=== PATIENT | male | born 1980 | race African-American/Black ===

== ENCOUNTER 2017-04-01 13:41 | Inpatient (IN) | payer MEDICAID ==
[~2017-04-01] VITALS: Ht 180.3 cm; Wt 69.9 kg
[2017-04-01] MEDS ORDERED: ONDANSETRON 4MG ODT PO STA (18:21)
[2017-04-01] MEDS ORDERED: VISCOUS LIDOCAINE 2% 15 ML UDC PO STA (18:21)
[2017-04-01] MEDS ORDERED: MAGNESIUM/ALUMINUM HYDROXIDE/SIMETHICONE 30ML UDC PO STA (18:21)
[2017-04-01] MEDS ORDERED: DICYCLOMINE 10 MG/5 ML ORAL SYR PO STA (18:21)
[2017-04-01] MEDS ORDERED: ACETAMINOPHEN WITH CODEINE 300/30MG TABLET PO STA (18:21)
[2017-04-01 18:53] LABS: CLARITY URINE CLEAR (CLEAR); COLOR URINE DARK YELLOW (YELLOW); GLUCOSE URINE NEGATIVE (NEGATIVE); KETONES URINE 2+ (NEGATIVE); LEUKOCYTE ESTERASE URINE NEGATIVE (NEGATIVE); NITRITE URINE NEGATIVE (NEGATIVE); OCCULT BLOOD URINE TRACE (NEGATIVE); PROTEIN URINE 2+ (NEGATIVE); SPECIFIC GRAVITY URINE 1.031 (1.005-1.030)
[2017-04-01 18:56] LABS: BASOPHILS % 0.1 % (0.0-2.0); EOSINOPHILS % 0.5 % (0.0-5.0); HEMATOCRIT. 45.8 % (42.0-52.0); HEMOGLOBIN. 15.5 g/dL (14.0-18.0); LYMPHOCYTES % 9.1 % (20.0-50.0); MEAN CORPUSCULAR HEMOGLOBIN 33.7 pg (28.0-32.0); MEAN CORPUSCULAR VOLUME 99.5 fL (80.0-94.0); MEAN PLATELET VOLUME 7.8 fl (7.4-10.4); MONOCYTES % 5.8 % (2.0-8.0); NEUTROPHILS % 84.5 % (40.0-76.0); PLATELET 213 x1000/uL (130-400); RED BLOOD CELL COUNT 4.61 mill/uL (4.7-6.1); RED CELL DISTRIBUTION WIDTH 14.8 % (11.6-14.6)
[2017-04-01 19:00] LABS: INR 0.9; PROTHROMBIN TIME 9.9 sec (9.4-11.6)
[2017-04-01 19:05] LABS: CARBON DIOXIDE 28 mEq/L (21-32); CHLORIDE 89 mEq/L (98-107)
[2017-04-01] MEDS ORDERED: SODIUM CHLORIDE 0.9% 1,000 ML IV ONE ×2 (19:17→19:45)
[2017-04-01 22:10] VITALS: BP 149/101
[2017-04-01] MEDS ORDERED: ONDANSETRON HCL 4MG/2ML VIAL IV PRN (23:00)
[2017-04-01] MEDS ORDERED: ACETAMINOPHEN 325MG TABLET PO PRN (23:00)
[2017-04-01] MEDS ORDERED: DIPHENHYDRAMINE 50MG/ML VIAL IV PRN (23:00)
[2017-04-01] MEDS ORDERED: SODIUM CHLORIDE 0.9% 1,000 ML IV SCH (23:30)
[2017-04-02] VITALS: BP 145/95
[2017-04-02] MEDS ORDERED: ACETAMINOPHEN WITH CODEINE 300/30MG TABLET PO PRN (01:00)
[2017-04-02] MEDS ORDERED: SODIUM CHLORIDE 0.9% 1,000 ML IV SCH (01:30)
[2017-04-02 04:00] VITALS: BP 145/99
[2017-04-02 07:04] LABS: BASOPHILS % 0.1 % (0.0-2.0); EOSINOPHILS % 0.2 % (0.0-5.0); HEMATOCRIT. 42.9 % (42.0-52.0); HEMOGLOBIN. 14.6 g/dL (14.0-18.0); LYMPHOCYTES % 17.5 % (20.0-50.0); MEAN CORPUSCULAR HEMOGLOBIN 33.8 pg (28.0-32.0); MEAN CORPUSCULAR VOLUME 99.5 fL (80.0-94.0); MEAN PLATELET VOLUME 8.2 fl (7.4-10.4); MONOCYTES % 7.2 % (2.0-8.0); PLATELET 184 x1000/uL (130-400); RED BLOOD CELL COUNT 4.31 mill/uL (4.7-6.1); RED CELL DISTRIBUTION WIDTH 14.8 % (11.6-14.6)
[2017-04-02 07:41] LABS: CARBON DIOXIDE 31 mEq/L (21-32); CHLORIDE 94 mEq/L (98-107)
[2017-04-02 08:00] VITALS: BP 142/91
[2017-04-02] MEDS ORDERED: KCL 20MEQ/100ML PREMIX 100 ML IV SCH (10:00)
[2017-04-02 12:00] VITALS: BP 134/89
[2017-04-02 14:13] VITALS: BP 134/89
== END 2017-04-02 14:45 | disposition home or self-care (01) | DRG 282 ==
LOC: ER 13:41 → 6EST 19:32 → ENRESERV 20:25
PROVIDERS: ADMIT Internal Medicine; ATTEND Internal Medicine
DX: K85.90 Acute pancreatitis without necrosis or infection, unspecified (principal); E83.52 Hypercalcemia; E87.1 Hypo-osmolality and hyponatremia; F10.10 Alcohol abuse, uncomplicated; K86.1 Other chronic pancreatitis; Z83.3 Family history of diabetes mellitus; Z80.9 Family history of malignant neoplasm, unspecified; Z72.0 Tobacco use
CPT/HCPCS: 36415; 74176; 76705; 80053; 81001; 83690; 83735; 85025; 85610; 96360; 96361; 99285; J3480; J7030; Q0162

== ENCOUNTER 2019-01-09 15:23 | Emergency (ER) | payer SELFPAY ==
[~2019-01-09] VITALS: Ht 180.3 cm; Wt 69.0 kg
[2019-01-09 18:29] VITALS: BP 130/94
== END 2019-01-09 18:32 | disposition home or self-care (01) ==
LOC: ER 16:59
DX: J06.9 Acute upper respiratory infection, unspecified (principal); F17.200 Nicotine dependence, unspecified, uncomplicated
CPT/HCPCS: 71045; 99283